=== PATIENT | female | born 1990 | race African-American/Black ===

== ENCOUNTER 2016-07-07 12:52 | Emergency (ER) | payer BC, MEDICAID, OTHER ==
[2016-07-07] MEDS ORDERED: FAMOTIDINE IV BAG 40 MG in APPROPRIATE DILUENT 1 EA IV ONE (14:15)
[2016-07-07] MEDS ORDERED: methylPREDNISolone INJ 125 MG/2 ML VIAL (J2930) IV ONE (14:15)
[2016-07-07 14:43] LABS: DIFF SLIDE NUMBER 237; MEAN CORPUSCULAR HEMOGLOBIN 30.2 pg (27.0-33.0); MEAN CORPUSCULAR HGB CONC 32.9 g/dl (32.0-36.5); MEAN CORPUSCULAR VOLUME 91.8 fl (80.0-96.0); PLATELET COUNT, AUTOMATED 255 k/mm3 (150-450)
[2016-07-07 14:47] LABS: ANION GAP 9 MEQ/L (8-16); BLOOD UREA NITROGEN 14 MG/DL (7-18); CALCIUM LEVEL 8.7 MG/DL (8.5-10.1); CARBON DIOXIDE LEVEL 27 MEQ/L (21-32); CHLORIDE LEVEL 105 MEQ/L (98-107); CREATININE FOR GFR 0.79 MG/DL (0.55-1.02); GLOMERULAR FILTRATION RATE > 60.0 (>60); GLUCOSE, FASTING 188 MG/DL (70-105); POTASSIUM SERUM 3.4 MEQ/L (3.5-5.1); SODIUM LEVEL 141 MEQ/L (136-145)
[2016-07-07 15:09] LABS: BASOPHILS 1 % (0-4)
[2016-07-07 15:21] VITALS: BP 108/58
[2016-07-07] MEDS ORDERED: POTASSIUM CHLORIDE 10 MEQ SR TABLET PO ONE (16:00)
--- NOTE | 2016-07-07 20:42 | ECGEPIP ---
Stationary ECG Study [facility] - ED Test Date: 2016-07-07 Pat Name: TINO BEST Department: Room: - Gender: F Corporate Planner: adalberto : 1990 Requested By: ANGEL Munoz Order Number: [id number] Reading MD: Ines Goode Measurements Intervals [place] Rate: 112 P: 45 ME: 144 QRS: 55 QRSD: 73 T: 41 QT: 311 QTc: 426 Interpretive Statements SINUS TACHYCARDIA NONSPECIFIC T-WAVE ABNORMALITY ABNORMAL RHYTHM ECG DELAYED R WAVE PROGRESSION NO OLD ECG FOR COMPARISON Electronically Signed On 07-07-2016 20:41:45 EST by Ines Goode
== END 2016-07-07 16:25 | disposition home or self-care (01) ==
LOC: M ED 14:21
DX: T78.40XA Allergy, unspecified, initial encounter (principal); X58.XXXA Exposure to other specified factors, initial encounter; Y92.89 Other specified places as the place of occurrence of the external cause; Y93.89 Activity, other specified; Y99.8 Other external cause status; J45.909 Unspecified asthma, uncomplicated
CPT/HCPCS: 36415; 80048; 85025; 93005; 93041; 94760; 96374; 96375; 99285; J2930

== ENCOUNTER 2018-01-21 17:45 | Emergency (ER) | payer OTHER ==
[2018-01-21] MEDS: ADACEL/BOOSTRIX VACCINE (DIPHTH/PERTUSS/ACELL/TETANUS)0.5ML SYR (90715) IM (18:37)
== END 2018-01-21 19:05 | disposition home or self-care (01) ==
LOC: M ED 17:45
DX: S61.212A Laceration without foreign body of right middle finger without damage to nail, initial encounter (principal); W29.0XXA Contact with powered kitchen appliance, initial encounter; Y92.89 Other specified places as the place of occurrence of the external cause; J45.909 Unspecified asthma, uncomplicated; F17.200 Nicotine dependence, unspecified, uncomplicated; Z91.018 Allergy to other foods
CPT/HCPCS: 90715

== ENCOUNTER → 2018-12-13 | Outpatient (REF) | payer OTHER ==
[~2018-12-13] MED LIST: BACI500O8 TOP
[2018-12-13 17:32] LABS: HEMATOCRIT 43.9 % (36.0-47.0); HEMOGLOBIN 14.7 g/dl (12.0-15.5); MEAN CORPUSCULAR HEMOGLOBIN 30.6 pg (27.0-33.0); MEAN CORPUSCULAR HGB CONC 33.5 g/dl (32.0-36.5); MEAN CORPUSCULAR VOLUME 91.3 fl (80.0-96.0); PLATELET COUNT, AUTOMATED 278 10^3/uL (150-450); RED BLOOD COUNT 4.81 10^6/uL (4.00-5.40); WHITE BLOOD COUNT 6.7 10^3/uL (4.0-10.0)
[2018-12-13 21:02] LABS: HCG, SERUM QUANTITATIVE 80291 MIU/ML
[2018-12-14 10:07] LABS: RUBELLA IgG QUALITATIVE IMMUNE (IMMUNE)
[2018-12-14 10:37] LABS: HEPATITIS C VIRUS ABY INDEX 0.1 INDEX (<0.8); HIV 1&2 SCREEN CENTAUR NEGATIVE (NEGATIVE)
== END ==
LOC: M LAB REF 16:16
PROVIDERS: ATTEND Obstetrics & Gynecology
DX: Z34.81 Encounter for supervision of other normal pregnancy, first trimester (principal); Z3A.00 Weeks of gestation of pregnancy not specified

== ENCOUNTER → 2019-01-11 | Outpatient (REF) | payer OTHER | LOC: M LAB REF 12:30 | PROVIDERS: ATTEND Obstetrics & Gynecology | DX: N39.0 Urinary tract infection, site not specified (principal) ==

== ENCOUNTER → 2019-02-07 | Outpatient (REF) | payer OTHER | LOC: M LAB REF 11:43 | PROVIDERS: ATTEND Obstetrics & Gynecology | DX: Z34.82 Encounter for supervision of other normal pregnancy, second trimester (principal) ==

== ENCOUNTER 2019-04-04 16:06 | Emergency (ER) | payer OTHER ==
[~2019-04-04] VITALS: Ht 165.1 cm; Wt 90.5 kg
[2019-04-04] MEDS ORDERED: PRENTAB9 PO (16:20)
[2019-04-04] MEDS ORDERED: PROV108A INH (16:21)
[2019-04-04] MEDS ORDERED: ACETAMINOPHEN 325 MG TAB As Ordered ONE (16:35)
[2019-04-04] MEDS ORDERED: ACETAMINOPHEN TAB 650MG DOSE (2X325MG) PO ONE (16:45)
[2019-04-04 18:15] VITALS: BP 129/74
== END 2019-04-04 18:35 | disposition home or self-care (01) ==
LOC: M ED 16:06 → EDBD 16:06 → M ED 18:35
DX: O9A.22 Injury, poisoning and certain other consequences of external causes complicating childbirth (principal); T22.232A Burn of second degree of left upper arm, initial encounter; T22.122A Burn of first degree of left elbow, initial encounter; T24.211A Burn of second degree of right thigh, initial encounter; T24.111A Burn of first degree of right thigh, initial encounter; X12.XXXA Contact with other hot fluids, initial encounter; Y92.090 Kitchen in other non-institutional residence as the place of occurrence of the external cause; Y93.G3 Activity, cooking and baking; Y99.8 Other external cause status; Z91.018 Allergy to other foods; Z91.010 Allergy to peanuts; Z3A.20 20 weeks gestation of pregnancy; Z79.899 Other long term (current) drug therapy

== ENCOUNTER → 2019-05-13 | Outpatient (CLI) | payer OTHER ==
[~2019-05-13] MED LIST changes: +PRENTAB9 PO; +PROV108A INH
[2019-05-13 15:18] LABS: HEMATOCRIT 38.5 % (36.0-47.0); HEMOGLOBIN 12.5 g/dl (12.0-15.5); MEAN CORPUSCULAR HEMOGLOBIN 30.7 pg (27.0-33.0); MEAN CORPUSCULAR HGB CONC 32.5 g/dl (32.0-36.5); MEAN CORPUSCULAR VOLUME 94.6 fl (80.0-96.0); PLATELET COUNT, AUTOMATED 245 10^3/uL (150-450); RED BLOOD COUNT 4.07 10^6/uL (4.00-5.40); WHITE BLOOD COUNT 7.2 10^3/uL (4.0-10.0)
== END ==
LOC: M LAB 13:41
PROVIDERS: ATTEND Obstetrics & Gynecology
DX: Z34.82 Encounter for supervision of other normal pregnancy, second trimester (principal); Z3A.00 Weeks of gestation of pregnancy not specified

== ENCOUNTER → 2019-07-09 | Outpatient (REF) | payer MEDICAID, OTHER | LOC: M LAB REF 16:29 | PROVIDERS: ATTEND Obstetrics & Gynecology | DX: Z36.85 Encounter for antenatal screening for Streptococcus B (principal) ==

== ENCOUNTER 2019-08-02 13:28 | Inpatient (IN) | payer MEDICAID ==
[~2019-08-02] VITALS: Ht 165.1 cm; Wt 100.4 kg
[2019-08-02] VITALS (7 sets, daily range): BP systolic 113–140; BP diastolic 65–87
[~2019-08-02 13:28] MED LIST changes: +MAPA500T2 PO
--- NOTE | 2019-08-02 17:49 | IPNPDOC ---
Text Note Date of Service The patient was seen on 08/02/19. NOTE Outpatient 29yo , pt of [facility]. ABE 08/04/2019. SVE [address] Hsieh /-3. UC continue 3-5 minutes apart x 45 seconds, mild FH 145 Cat I SVE /-2, light bloody show Continue to observe and reassess in approximately 2 hours VS,Fishbone, I+O VS, Fishbone, I+O Vital Signs Date Time Temp Pulse Resp B/P (MAP) Pulse Ox O2 Delivery O2 Flow Rate FiO2 08/02/19 17:06 97.1 18 08/02/19 17:06 98 124/82 (96) Rosa Bush Aug 02, 2019 17:49
[2019-08-02] MEDS ORDERED: LACTATED RINGER'S 1000 ML IV ONE (19:45)
[2019-08-02] MEDS ORDERED: LR 1,000 ML IV SCH (19:45)
[2019-08-02] MEDS ORDERED: PROMETHAZINE INJ 25 MG/ML VIAL (J2550) IV ONE (20:30)
[2019-08-02] MEDS ORDERED: MORPHINE 10 MG/ML 1ML VIAL (J2270) IM ONE (20:30)
[2019-08-02] MEDS ORDERED: MORPHINE 10 MG/ML 1ML VIAL (J2270) IV ONE (20:30)
[2019-08-03] VITALS (45 sets, daily range): BP systolic 113–156; BP diastolic 60–106
[2019-08-03] MEDS ORDERED: OXYTOCIN DRIP 30 UNITS in IV 1 EA IV SCH ×2 (02:30→14:00)
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
[2019-08-03 02:50] LABS: HEMATOCRIT 38.2 % (36.0-47.0); HEMOGLOBIN 12.6 g/dl (12.0-15.5); MEAN CORPUSCULAR HEMOGLOBIN 30.7 pg (27.0-33.0); MEAN CORPUSCULAR VOLUME 92.9 fl (80.0-96.0); PLATELET COUNT, AUTOMATED 217 10^3/uL (150-450); RED BLOOD COUNT 4.11 10^6/uL (4.00-5.40); WHITE BLOOD COUNT 12.2 10^3/uL (4.0-10.0)
[2019-08-03] MEDS ORDERED: FENTANYL 2MCG/ML ROPIVACAINE 0.2% IN 0.9% NACL 100ML IVBAG As Ordered ONE ×2 (03:04→12:04)
[2019-08-03] MEDS ORDERED: NALOXONE INJ 0.4 MG/1 ML VIAL (J2310) IV PRN (03:20)
[2019-08-03] MEDS ORDERED: EPIDURAL/PCA KEYS XX PRN (03:20)
[2019-08-03] MEDS ORDERED: EPIDURAL COMMENT XX SCH (03:20)
[2019-08-03] MEDS ORDERED: REFRIGERATOR IV KEYS XX PRN (03:20)
[2019-08-03] MEDS ORDERED: LACTATED RINGER'S 1000 ML IV PRN (03:20)
[2019-08-03] MEDS ORDERED: ONDANSETRON 4MG/2ML VIAL (J2405) IV PRN ×2 (03:20→13:45)
[2019-08-03] MEDS ORDERED: ePHEDrine SULFATE 25 MG/5 ML(5MG/ML) SYRINGE IV PRN (03:20)
[2019-08-03] MEDS ORDERED: diphenhydrAMINE INJ 50MG/ML VIAL (J1200) IV PRN (03:20)
[2019-08-03 03:31] LABS: ALT/SGPT 10 U/L (12-78); BILIRUBIN,TOTAL 0.4 MG/DL (0.2-1.0); CREATININE FOR GFR 0.65 MG/DL (0.55-1.30); GLOMERULAR FILTRATION RATE > 60.0 (>60); LDH LACTATE DEHYDROGENASE 148 U/L (84-246); URIC ACID 5.5 MG/DL (2.6-6.0)
[2019-08-03] MEDS: FENTANYL/ROPIVACAINE/NACL BAG 100 ML EPIDURAL SCH ×2 (03:41→12:06)
[2019-08-03] MEDS: LR 1,000 ML IV SCH ×2 (04:19→10:01)
[2019-08-03] MEDS ORDERED: ACETAMINOPHEN TAB 650MG DOSE (2X325MG) PO PRN (13:45)
[2019-08-03] MEDS ORDERED: MEASLES,MUMPS,RUBELLA VACCINE INJ (MMR-II) (90707) SC SCH (13:45)
[2019-08-03] MEDS ORDERED: RHOGAM 300 MCG (1500 IU) INJ (J2790) IM SCH (13:45)
[2019-08-03] MEDS ORDERED: PROMETHAZINE 25 MG TAB PO PRN (13:45)
[2019-08-03] MEDS ORDERED: DOCUSATE SODIUM 100 MG CAP PO PRN (13:45)
[2019-08-03] MEDS ORDERED: IBUPROFEN 600 MG TAB PO PRN (13:45)
[2019-08-03] MEDS ORDERED: DIBUCAINE 1% OINTMENT 30GM TOP PRN (13:45)
[2019-08-03] MEDS ORDERED: LR 1,000 ML IV SCH (14:00)
[2019-08-03] MEDS: IBUPROFEN 800 MG TAB PO PRN (16:10)
[2019-08-04] MEDS: ACETAMINOPHEN 500 MG TAB PO PRN ×2 (00:16→19:47)
[2019-08-04] MEDS: IBUPROFEN 800 MG TAB PO PRN ×2 (05:31→16:08)
[2019-08-04 05:58] VITALS: BP 109/69
[2019-08-04] MEDS: PRENATAL VITAMINS CHEWABLE TABLET PO SCH (08:51)
[2019-08-04] MEDS ORDERED: ADACEL/BOOSTRIX VACCINE (DIPHTH/PERTUSS/ACELL/TETANUS)0.5ML SYR (90715) IM ONE (09:00)
[2019-08-04 17:55] VITALS: BP 109/76
[2019-08-05] MEDS: IBUPROFEN 800 MG TAB PO PRN (03:11)
[2019-08-05 06:00] VITALS: BP 120/75
[2019-08-05] MEDS: PRENATAL VITAMINS CHEWABLE TABLET PO SCH (09:00)
[2019-08-05] MEDS ORDERED: ADACEL/BOOSTRIX VACCINE (DIPHTH/PERTUSS/ACELL/TETANUS)0.5ML SYR (90715) IM ONE (09:00)
== END 2019-08-05 13:00 | disposition home or self-care (01) | DRG 560 ==
LOC: M LDO 13:28 → M LDI 08-03 02:17 → M OBS 08-03 15:43
PROVIDERS: ADMIT Obstetrics & Gynecology; ATTEND Obstetrics & Gynecology
PROC: 10E0XZZ Delivery of Products of Conception, External Approach (ICD-10-PCS; principal; 2019-08-03)
PROC: 0HQ9XZZ Repair Perineum Skin, External Approach (ICD-10-PCS; 2019-08-03)
DX: O70.0 First degree perineal laceration during delivery (principal); Z37.0 Single live birth; Z3A.39 39 weeks gestation of pregnancy